=== PATIENT | female | born 1945 | race Caucasian/White ===

== ENCOUNTER → 2018-09-08 | Outpatient (CLI) | payer MEDICARE, OTHER ==
[~2018-09-08] MED LIST: ATEN50 PO; CARBLEV250 PO; CIPR500 PO; FURO100EL PO; IBUP400 PO; LOSA25 PO; POTCHL20ER PO; STALEVO 150 PO
== END | disposition home or self-care (01) ==
LOC: LAB SHORT 17:10 → LAB 17:10
DX: N02.0 Recurrent and persistent hematuria with minor glomerular abnormality (principal); R35.0 Frequency of micturition
CPT/HCPCS: 87077; 87086; 87186

== ENCOUNTER → 2019-07-06 | Outpatient (CLI) | payer MEDICARE, OTHER | END | disposition home or self-care (01) | LOC: LAB SHORT 18:01 → LAB 18:01 | DX: R30.0 Dysuria (principal) | CPT/HCPCS: 87086 ==

== ENCOUNTER → 2019-07-13 | Outpatient (CLI) | payer MEDICARE, OTHER | END | disposition home or self-care (01) | DX: R30.0 Dysuria (principal) ==

== ENCOUNTER → 2019-10-15 | Outpatient (CLI) | payer MEDICARE, OTHER | LOC: LAB 17:59 → LAB SHORT 17:59 | DX: L08.9 Local infection of the skin and subcutaneous tissue, unspecified (principal) | CPT/HCPCS: 87070; 87205 ==

== ENCOUNTER → 2020-01-01 | Outpatient (CLI) | payer MEDICARE, OTHER ==
[~2020-01-01] MED LIST changes: +ATENOLOL25 MG PO; +CEFP200 PO; +DYAZIDE 37.5-21 EACH PO; +Diflucan200 MG PO; +ENTACAPONE200 M1 PO; +LOSARTAN POTASS25 M2 PO
== END ==
LOC: LAB 18:24 → LAB SHORT 18:24
DX: L30.4 Erythema intertrigo (principal)
CPT/HCPCS: 87070; 87205

== ENCOUNTER 2020-01-10 02:53 | Emergency (ER) | payer MEDICARE, OTHER ==
[~2020-01-10] VITALS: Ht 167.6 cm; Wt 77.1 kg
[~2020-01-10 02:53] MED LIST changes: -ATENOLOL25 MG PO; -CEFP200 PO; -DYAZIDE 37.5-21 EACH PO; -Diflucan200 MG PO; -ENTACAPONE200 M1 PO; -LOSARTAN POTASS25 M2 PO
[2020-01-10] MEDS ORDERED: ATENOLOL25 MG PO (03:04)
[2020-01-10] MEDS ORDERED: Diflucan200 MG PO (03:04)
[2020-01-10] MEDS ORDERED: LOSARTAN POTASS25 M2 PO (03:05)
[2020-01-10] MEDS ORDERED: ENTACAPONE200 M1 PO (03:06)
[2020-01-10] MEDS ORDERED: DYAZIDE 37.5-21 EACH PO (03:06)
[2020-01-10 03:25] LABS: BASOPHILS ABSOLUTE AUTO 0.05 K/mm3 (0.00-0.23); BASOPHILS PERCENT AUTO 1 % (0-2); EOSINOPHILS ABSOLUTE AUTO 0.15 K/mm3 (0.00-0.68); EOSINOPHILS PERCENT AUTO 2 % (0-6); Hematocrit 31.6 % (33.0-51.0); Hemoglobin 10.4 g/dL (11.5-16.0); IMMATURE GRAN ABSOLUTE AUTO 0.04 K/mm3 (0.00-0.10); IMMATURE GRAN PERCENT AUTO 0 % (0-1); LYMPHOCYTES ABSOLUTE AUTO 0.79 K/mm3 (0.84-5.20); LYMPHOCYTES PERCENT AUTO 8 % (21-46); MONOCYTES ABSOLUTE AUTO 0.98 K/mm3 (0.16-1.47); MONOCYTES PERCENT AUTO 10 % (4-13); Mean Corpuscular HGB 31.4 pg (26.0-34.0); Mean Corpuscular HGB Conc 32.9 g/dL (31.5-36.5); Mean Corpuscular Volume 96 fL (80-100); Mean Platelet Volume 9.5 fL (9.1-12.4); NEUTROPHILS ABSOLUTE AUTO 8.16 K/mm3 (1.96-9.15); NEUTROPHILS PERCENT AUTO 80 % (41-73); Platelet Count 300 K/mm3 (150-400); RDW Coefficient Variation 13.4 % (11.7-14.2); RDW Standard Deviation 47.2 fL (35.1-46.3); Red Blood Cell Count 3.31 M/mm3 (3.80-5.20); White Blood Cell Count 10.17 K/mm3 (4.00-11.30)
[2020-01-10 03:45] LABS: Alanine Aminotransfer (ALT/SGP <6 U/L (12-78); Albumin, Blood 3.5 g/dL (3.4-5.0); Alk Phos 79 U/L (50-136); Anion Gap 8 mmol/L (6-16); Aspartate Aminotrans (AST/SGOT 12 U/L (12-37); Bilirubin, Total 0.6 mg/dL (0.1-1.0); Blood Urea Nitrogen 28 mg/dL (8-24); Bun/Creatinine Ratio 21.9 (12.0-20.0); CO2, Blood 22 mmol/L (21-32); Calcium, Blood 8.7 mg/dL (8.5-10.1); Chloride, Blood 106 mmol/L (98-108); Creatinine, Blood 1.28 mg/dL (0.40-1.00); Globulin, Blood 3.6 g/dL (2.2-4.0); Glomerular Filtration Rate 43 (60-); Glucose, Blood 98 mg/dL (70-99); Potassium, Blood 3.5 mmol/L (3.5-5.5); Sodium, Blood 136 mmol/L (136-145); Total Protein, Blood 7.1 g/dL (6.4-8.2)
[2020-01-10 04:05] LABS: Source, Urine Clean Catch
[2020-01-10 04:07] LABS: Appearance, Urine Clear (Clear); Bilirubin, Urine Neg (Neg); Blood, Urine 2+ (Neg); Color, Urine Amber (P-Yellow); Glucose Qualitative, Urine Neg (Neg); Ketones, Urine 1+ (Neg); Leukocyte Esterase, Urine 3+ (Neg); Nitrite, Urine Neg (Neg); Protein, Urine 1+ (Neg); Specific Gravity, Urine 1.015 (1.003-1.022); Urobilinogen, Urine NORM (Normal)
[2020-01-10 04:13] LABS: Bacteria Many /hpf; Squamous Epithelial Cells Few /hpf (Few)
[2020-01-10] MEDS ORDERED: CEFP200 PO (04:22)
== END 2020-01-10 04:55 | disposition home or self-care (01) ==
LOC: ER 02:53
PROVIDERS: Emergency Medicine
DX: R44.3 Hallucinations, unspecified (principal); N39.0 Urinary tract infection, site not specified; G20 Parkinson's disease; I10 Essential (primary) hypertension; Z79.899 Other long term (current) drug therapy
CPT/HCPCS: 36415; 80053; 81001; 85025; 87086; 96360; 99285-25; A9270-GY; J7030

== ENCOUNTER → 2020-02-04 | Outpatient (CLI) | payer MEDICARE, OTHER ==
[~2020-02-04] MED LIST changes: +ATENOLOL25 MG PO; +CEFP200 PO; +DYAZIDE 37.5-21 EACH PO; +Diflucan200 MG PO; +ENTACAPONE200 M1 PO; +LOSARTAN POTASS25 M2 PO
== END | disposition home or self-care (01) ==
LOC: LAB 18:56
DX: L08.9 Local infection of the skin and subcutaneous tissue, unspecified (principal)
CPT/HCPCS: 87070; 87205

== ENCOUNTER → 2022-05-04 | Outpatient (CLI) | payer MEDICARE ==
[~2022-05-04] MED LIST changes: +ENTACAPONE PO
[2022-05-05 00:36] LABS: Source, Urine Clean Catch
[2022-05-05 00:46] LABS: Bilirubin, Urine Neg (Neg); Blood, Urine 1+ (Neg); Glucose Qualitative, Urine Neg (Neg); Ketones, Urine 1+ (Neg); Leukocyte Esterase, Urine 3+ (Neg); Nitrite, Urine Pos (Neg); Protein, Urine 3+ (Neg); Specific Gravity, Urine 1.015 (1.003-1.022); Urobilinogen, Urine NORM (Normal)
[2022-05-05 01:12] LABS: Appearance, Urine Hazy (Clear); Color, Urine Yellow (P-Yellow)
[2022-05-05 01:15] LABS: Bacteria Many /hpf; Mucus Heavy (0-Heavy); Red Blood Cells, Urine 0-2 /hpf (0-2); Squamous Epithelial Cells Rare /hpf (Few); Yeast/Fungi Urine Few /hpf
== END | disposition home or self-care (01) ==
LOC: EDSTATUS 15:53 → LAB UVN 23:20
PROVIDERS: Internal Medicine
DX: N39.0 Urinary tract infection, site not specified (principal)
CPT/HCPCS: 81001; 87077; 87086; 87186

== ENCOUNTER 2022-07-31 17:26 | Emergency (ER) | payer MEDICARE, BC ==
[~2022-07-31] VITALS: Ht 165.1 cm; Wt 81.7 kg
[2022-07-31] MEDS ORDERED: AMLO5 PO (17:46)
[2022-07-31 18:52] LABS: BASOPHILS ABSOLUTE AUTO 0.04 K/mm3 (0.00-0.23); BASOPHILS PERCENT AUTO 0 % (0-2); EOSINOPHILS ABSOLUTE AUTO 0.04 K/mm3 (0.00-0.68); EOSINOPHILS PERCENT AUTO 0 % (0-6); Hemoglobin 10.6 g/dL (11.5-16.0); IMMATURE GRAN ABSOLUTE AUTO 0.04 K/mm3 (0.00-0.10); IMMATURE GRAN PERCENT AUTO 0 % (0-1); LYMPHOCYTES ABSOLUTE AUTO 1.28 K/mm3 (0.84-5.20); LYMPHOCYTES PERCENT AUTO 14 % (21-46); MONOCYTES ABSOLUTE AUTO 0.78 K/mm3 (0.16-1.47); MONOCYTES PERCENT AUTO 9 % (4-13); Mean Corpuscular HGB 29.1 pg (26.0-34.0); Mean Corpuscular HGB Conc 33.1 g/dL (31.5-36.5); Mean Corpuscular Volume 88 fL (80-100); Mean Platelet Volume 10.7 fL (9.1-12.4); NEUTROPHILS PERCENT AUTO 76 % (41-73); Platelet Count 257 K/mm3 (150-400); RDW Coefficient Variation 13.5 % (11.7-14.2); RDW Standard Deviation 43.5 fL (35.1-46.3); Red Blood Cell Count 3.64 M/mm3 (3.80-5.20); White Blood Cell Count 9.08 K/mm3 (4.00-11.30)
[2022-07-31 19:14] LABS: Albumin, Blood 3.4 g/dL (3.4-5.0); Bilirubin, Total 0.6 mg/dL (0.1-1.0); Bun/Creatinine Ratio 29.9 (12.0-20.0); Calcium, Blood 9.3 mg/dL (8.5-10.1); Creatinine, Blood 0.8 mg/dL (0.40-1.00); Globulin, Blood 3.3 g/dL (2.2-4.0); Potassium, Blood 3.2 mmol/L (3.5-5.5); Total Protein, Blood 6.7 g/dL (6.4-8.2)
[2022-07-31 19:47] LABS: Source, Urine Straight Cath
[2022-07-31 20:09] LABS: Appearance, Urine Clear (Clear); Bilirubin, Urine Neg (Neg); Blood, Urine 1+ (Neg); Color, Urine Yellow (P-Yellow); Glucose Qualitative, Urine Neg (Neg); Ketones, Urine Neg (Neg); Leukocyte Esterase, Urine 1+ (Neg); Nitrite, Urine Neg (Neg); Protein, Urine 2+ (Neg); Urobilinogen, Urine NORM (Normal)
[2022-07-31 20:25] LABS: Red Blood Cells, Urine 0-2 /hpf (0-2)
[2022-07-31 20:26] LABS: Bacteria Few /hpf; Squamous Epithelial Cells Few /hpf (Few)
[2022-07-31 21:00] VITALS: BP 154/63
== END 2022-07-31 22:25 | disposition home or self-care (01) ==
LOC: ER 17:26
PROVIDERS: Student in an Organized Health Care Education/Training Program
DX: S42.034A Nondisplaced fracture of lateral end of right clavicle, initial encounter for closed fracture (principal); X58.XXXA Exposure to other specified factors, initial encounter; R35.0 Frequency of micturition; I10 Essential (primary) hypertension; G20 Parkinson's disease; Z79.899 Other long term (current) drug therapy
CPT/HCPCS: 73030; 80053; 81001; 85025; 96374; 99285-25; J1885; J7030

== ENCOUNTER 2022-08-02 13:41 | Inpatient (IN) | payer MEDICARE, BC ==
[~2022-08-02] VITALS: Ht 165.1 cm; Wt 72.4 kg
[~2022-08-02 13:41] MED LIST changes: +AMLO5 PO; +CARBIDOPA-LEVO1 EA16 PO; -CARBLEV250 PO
[2022-08-02 14:25] LABS: BASOPHILS ABSOLUTE AUTO 0.07 K/mm3 (0.00-0.23); BASOPHILS PERCENT AUTO 0 % (0-2); EOSINOPHILS ABSOLUTE AUTO 0.03 K/mm3 (0.00-0.68); EOSINOPHILS PERCENT AUTO 0 % (0-6); Hematocrit 37.1 % (33.0-51.0); Hemoglobin 12.3 g/dL (11.5-16.0); IMMATURE GRAN ABSOLUTE AUTO 0.09 K/mm3 (0.00-0.10); IMMATURE GRAN PERCENT AUTO 1 % (0-1); LYMPHOCYTES ABSOLUTE AUTO 0.77 K/mm3 (0.84-5.20); LYMPHOCYTES PERCENT AUTO 4 % (21-46); MONOCYTES ABSOLUTE AUTO 1.49 K/mm3 (0.16-1.47); MONOCYTES PERCENT AUTO 8 % (4-13); Mean Corpuscular HGB 28.9 pg (26.0-34.0); Mean Corpuscular HGB Conc 33.2 g/dL (31.5-36.5); Mean Corpuscular Volume 87 fL (80-100); Mean Platelet Volume 11.6 fL (9.1-12.4); NEUTROPHILS ABSOLUTE AUTO 15.26 K/mm3 (1.96-9.15); NEUTROPHILS PERCENT AUTO 86 % (41-73); Platelet Count 275 K/mm3 (150-400); RDW Coefficient Variation 13.6 % (11.7-14.2); RDW Standard Deviation 43.4 fL (35.1-46.3); Red Blood Cell Count 4.25 M/mm3 (3.80-5.20); White Blood Cell Count 17.71 K/mm3 (4.00-11.30)
[2022-08-02 14:37] LABS: Albumin, Blood 3.4 g/dL (3.4-5.0); Albumin/Globulin Ratio 0.8 (0.8-1.8); Bun/Creatinine Ratio 35.4 (12.0-20.0); Calcium, Blood 9.2 mg/dL (8.5-10.1); Creatinine, Blood 0.96 mg/dL (0.40-1.00); Potassium, Blood 3.8 mmol/L (3.5-5.5); Total Protein, Blood 7.4 g/dL (6.4-8.2)
[2022-08-02 15:16] LABS: Source, Urine Clean Catch
[2022-08-02 15:58] LABS: Appearance, Urine Clear (Clear); Bilirubin, Urine Neg (Neg); Blood, Urine 3+ (Neg); Color, Urine Yellow (P-Yellow); Glucose Qualitative, Urine Neg (Neg); Ketones, Urine 2+ (Neg); Leukocyte Esterase, Urine Neg (Neg); Nitrite, Urine Neg (Neg); Protein, Urine 3+ (Neg); Specific Gravity, Urine 1.015 (1.003-1.022); Urobilinogen, Urine NORM (Normal)
[2022-08-02 16:41] LABS: Amorphous Light (0-Heavy); Bacteria Mod /hpf; Mucus Light (0-Heavy); Squamous Epithelial Cells Rare /hpf (Few); White Blood Cells, Urine 0-2 /hpf (0-5)
[2022-08-02 18:31] LABS: Base Excess Venous -2.5 mmol/L; Bicarbonate Venous 22.6 mmol/L (24.0-30.0); PCO2 Venous 35.7 mmHg (38-42)
[2022-08-02 20:50] VITALS: BP 123/42
[2022-08-03 03:19] LABS: Source, Urine Straight Cath
[2022-08-03 03:22] LABS: Appearance, Urine Clear (Clear); Bilirubin, Urine Neg (Neg); Blood, Urine 4+ (Neg); Color, Urine Yellow (P-Yellow); Glucose Qualitative, Urine Neg (Neg); Ketones, Urine 2+ (Neg); Leukocyte Esterase, Urine Neg (Neg); Nitrite, Urine Pos (Neg); Protein, Urine 3+ (Neg); Specific Gravity, Urine 1.015 (1.003-1.022); Urobilinogen, Urine NORM (Normal)
[2022-08-03 04:14] LABS: Amorphous Light (0-Heavy); Bacteria Few /hpf; Red Blood Cells, Urine 0-2 /hpf (0-2); Squamous Epithelial Cells Not Seen /hpf (Few); White Blood Cells, Urine 0-2 /hpf (0-5)
--- NOTE | 2022-08-03 04:41 | NUR ---
SHIFT SUMMARY REPORT CALLED FROM HANNAH JIMENEZ IN ED- 2100 PT BROUGHT TO ROOM VIA GURNEY- PUREWICK IN PLACE- PT HAS SLING ON RIGHT ARM FOR PREVIOUS CLAVICLE INJURY-STARTED IV FLUIDS PER ORDER- PT TOOK SCHEDULED MEDS WITHOUT PROBLEMS- ASSISTED PT WITH EATING ICE CREAM- PT REPORTED PAIN IN RIGHT SHOULDER TOLERABLE -0200 PUREWICK HAD LOW OUTPUT- ABDOMEN IS DISTENDED- BLADDER SCAN =1057- ENCOURAGED PT TO SIT ON BSC- PT ABLE TO URINATE SMALL AMOUNT- POST RESIDUAL SCAN - 1107, CALL TO DR. RAMOS - NEW ORDER FOR I&O CATH AND OBTAIN NEW UA D/T LAB REPORTING TOO SMALL AMOUNT COLLECTED WITH FIRST UA- DRAINED 1200 JOEL URINE-UA SENT TO LAB BED LOW POSITION, CALL LIGHT WITHIN REACH, BED ALARM IN PLACE
[2022-08-03 04:48] LABS: BASOPHILS ABSOLUTE AUTO 0.05 K/mm3 (0.00-0.23); BASOPHILS PERCENT AUTO 0 % (0-2); EOSINOPHILS PERCENT AUTO 2 % (0-6); Hematocrit 31.7 % (33.0-51.0); Hemoglobin 10.5 g/dL (11.5-16.0); IMMATURE GRAN ABSOLUTE AUTO 0.04 K/mm3 (0.00-0.10); IMMATURE GRAN PERCENT AUTO 0 % (0-1); LYMPHOCYTES ABSOLUTE AUTO 1.15 K/mm3 (0.84-5.20); LYMPHOCYTES PERCENT AUTO 9 % (21-46); MONOCYTES ABSOLUTE AUTO 1.49 K/mm3 (0.16-1.47); MONOCYTES PERCENT AUTO 11 % (4-13); Mean Corpuscular HGB 29.2 pg (26.0-34.0); Mean Corpuscular HGB Conc 33.1 g/dL (31.5-36.5); Mean Corpuscular Volume 88 fL (80-100); Mean Platelet Volume 11.6 fL (9.1-12.4); NEUTROPHILS ABSOLUTE AUTO 10.17 K/mm3 (1.96-9.15); NEUTROPHILS PERCENT AUTO 77 % (41-73); Platelet Count 209 K/mm3 (150-400); RDW Coefficient Variation 13.4 % (11.7-14.2); RDW Standard Deviation 43.8 fL (35.1-46.3); Red Blood Cell Count 3.59 M/mm3 (3.80-5.20)
[2022-08-03 04:56] VITALS: BP 146/66
--- NOTE | 2022-08-03 07:12 | NUR ---
ASSUMED CARE: PT RESTING IN BED, IVF RUNNING LR AT 125/HR. PHYSICAL THERAPY AT BEDSIDE TO DO EVALUATION. NO ACUTE NEEDS OR CONCERNS AT THIS TIME.
[2022-08-03 07:33] VITALS: BP 125/55
[2022-08-03 09:34] LABS: Albumin, Blood 3.3 g/dL (3.4-5.0); Anion Gap 8 mmol/L (6-16); Blood Urea Nitrogen 36 mg/dL (8-24); Bun/Creatinine Ratio 46.8 (12.0-20.0); CO2, Blood 26 mmol/L (21-32); Chloride, Blood 106 mmol/L (98-108); Creatinine, Blood 0.77 mg/dL (0.40-1.00); Glomerular Filtration Rate 79 (60-); Glucose, Blood 95 mg/dL (70-99); Phosphorus, Blood 2.9 mg/dL (2.5-4.9); Potassium, Blood 3.1 mmol/L (3.5-5.5); Sodium, Blood 140 mmol/L (136-145)
--- NOTE | 2022-08-03 11:15 | NUR ---
OT CONCERNED ABOUT PT'S CLAVICLE FRACTURE AND WANTED TO KNOW WB STATUS. DISCUSSED WITH DR STATON WHO STATED WE DO NOT NEED ORTHO CONSULT AT THIS TIME AND PT CAN BE NWB OF RIGHT ARM. OT AWARE AND WORKING WITH PT NOW
[2022-08-03 15:18] VITALS: BP 147/66
--- NOTE | 2022-08-03 19:09 | NUR ---
SHIFT SUMMARY: PT HAD FREQUENT BOWEL MOVEMENTS TODAY AFTER BOWEL CARE GIVEN. RETAINING URINE. LATEST BLADDER SCAN SHOWED 854. STRAIGHT CATH DONE WITH 650 OUT. PLAN IS FOR PLACEMENT UPON DISCHARGE. NO ACUTE NEEDS OR CONCERNS
[2022-08-03 20:01] VITALS: BP 151/100
[2022-08-04 04:12] VITALS: BP 135/48
[2022-08-04 05:25] LABS: Hematocrit 33.3 % (33.0-51.0); Hemoglobin 11.4 g/dL (11.5-16.0); Mean Corpuscular HGB 29.5 pg (26.0-34.0); Mean Corpuscular HGB Conc 34.2 g/dL (31.5-36.5); Mean Corpuscular Volume 86 fL (80-100); Platelet Count 177 K/mm3 (150-400); RDW Coefficient Variation 13.3 % (11.7-14.2); RDW Standard Deviation 41.6 fL (35.1-46.3); Red Blood Cell Count 3.87 M/mm3 (3.80-5.20); White Blood Cell Count 13.58 K/mm3 (4.00-11.30)
[2022-08-04 05:58] LABS: Anion Gap 7 mmol/L (6-16); Blood Urea Nitrogen 28 mg/dL (8-24); Bun/Creatinine Ratio 38.2 (12.0-20.0); CO2, Blood 25 mmol/L (21-32); Calcium, Blood 8.7 mg/dL (8.5-10.1); Chloride, Blood 108 mmol/L (98-108); Creatinine, Blood 0.73 mg/dL (0.40-1.00); Glomerular Filtration Rate 85 (60-); Glucose, Blood 103 mg/dL (70-99); Phosphorus, Blood 2.3 mg/dL (2.5-4.9); Potassium, Blood 3.3 mmol/L (3.5-5.5); Sodium, Blood 140 mmol/L (136-145)
--- NOTE | 2022-08-04 06:07 | NUR ---
SHIFT SUMMARY PT LAYING IN BED DURING BEDSIDE ROUNDS- PT TOOK SCHEDULED MEDICATIONS WHOLE IN APPLE SAUCE- PT UP TO BSC- PT UNABLE TO VOID-WILL CONTINUE TO MONITOR- 2315 BLADDER SCAN DONE 381- PT C/O OF PAIN WHILE SCAN DONE- PT REPORTED PAIN SUBSIDED AFTER BLADDER SCAN- NO SIGN OF DISTENTION, 0100 BLADDER SCAN = 403- WILL CONTINUE TO MONITOR, 0200 PT SET OFF BED ALARM AND WAS AMBULATING IN ROOM- ASSISTED PT TO BATHROOM- PT ABLE TO URINATE SMALL AMOUNT OF 25ML OF JOEL URINE AND HAD SMALL BM -0400 REPEAT BLADDER SCAN = 603- PT UP TO BSC - UNABLE TO URINATE- STRAIGHT CATH DONE PER ORDER= 600 ML JOEL URINE OBTAINED- PT TOLERATED WELL- PT REQUESTED OXYCODONE FOR BACK PAIN- BED LOW POSITION, CALL LIGHT WITHIN REACH
[2022-08-04 07:45] VITALS: BP 144/57
[2022-08-04 15:20] VITALS: BP 141/61
[2022-08-04 15:21] LABS: Source, Urine Foley catheter
[2022-08-04 15:25] LABS: Appearance, Urine Hazy (Clear); Bilirubin, Urine Neg (Neg); Blood, Urine 3+ (Neg); Color, Urine Yellow (P-Yellow); Glucose Qualitative, Urine Neg (Neg); Ketones, Urine Neg (Neg); Leukocyte Esterase, Urine 3+ (Neg); Nitrite, Urine Neg (Neg); Protein, Urine 2+ (Neg); Specific Gravity, Urine 1.015 (1.003-1.022); Urobilinogen, Urine NORM (Normal)
[2022-08-04 15:41] LABS: Amorphous Light (0-Heavy); Bacteria Many /hpf; Squamous Epithelial Cells Few /hpf (Few)
--- NOTE | 2022-08-04 16:36 | NUR ---
PT AOX3 WITH SOME MILD CONFUSION. PT DENIES NEED FOR ANY PAIN MEDICATION AT THIS TIME. PT WAS NOT VOIDING TODAY AND HAD ANOTHER BLADDER SCAN OVER 500ML. DR STATON WAS NOTFIED AND SHE INSTRUCTED TO HAVE PT GET UP TO COMMODE AND TRY TO VOID, IF UNABLE TO VOID PLACE LOU. PT WAS GOTTEN UP TO COMMODE AND WAS UNABLE TO VOID BLADDER. LOU WAS PLACE AND PT TOLERATED WELL. PT DOES SEEM TO HAVE HAD SOME MILD INCREASE IN CONFUSION THE DAY HAS PROGRESSED. SHE IS HAVING TO ASK WHAT SHE IS LOOKING AT BE IT A CHAIR OR SOMETHING ON THE BENCH. PT HAS BED ALARM PLACE AND CALL LIGHT WITHIN REACH. WILL CONTINUE TO MONITOR.
[2022-08-04 20:11] VITALS: BP 88/74
[2022-08-05 04:44] VITALS: BP 157/65
[2022-08-05 04:51] LABS: Hematocrit 29.8 % (33.0-51.0); Hemoglobin 10.1 g/dL (11.5-16.0); Mean Corpuscular HGB 29.3 pg (26.0-34.0); Mean Corpuscular HGB Conc 33.9 g/dL (31.5-36.5); Mean Corpuscular Volume 86 fL (80-100); Mean Platelet Volume 11.8 fL (9.1-12.4); Platelet Count 217 K/mm3 (150-400); RDW Coefficient Variation 13.2 % (11.7-14.2); RDW Standard Deviation 41.8 fL (35.1-46.3); Red Blood Cell Count 3.45 M/mm3 (3.80-5.20); White Blood Cell Count 9.28 K/mm3 (4.00-11.30)
[2022-08-05 05:10] LABS: Albumin, Blood 2.7 g/dL (3.4-5.0); Anion Gap 5 mmol/L (6-16); Blood Urea Nitrogen 19 mg/dL (8-24); Bun/Creatinine Ratio 27.5 (12.0-20.0); CO2, Blood 27 mmol/L (21-32); Calcium, Blood 8.1 mg/dL (8.5-10.1); Chloride, Blood 110 mmol/L (98-108); Creatinine, Blood 0.69 mg/dL (0.40-1.00); Glomerular Filtration Rate 89 (60-); Glucose, Blood 116 mg/dL (70-99); Phosphorus, Blood 3.6 mg/dL (2.5-4.9); Potassium, Blood 3.4 mmol/L (3.5-5.5); Sodium, Blood 142 mmol/L (136-145)
--- NOTE | 2022-08-05 05:21 | NUR ---
SHIFT SUMMARY: PT A&O X2 THIS SHIFT. PT PLEASANT AND COOPERATIVE WITH ALL CARE. PT COULD STATE HER NAME AND . PT ALSO ABLE TO TALK ABOUT AND FAMILY. PT STATED MANY TIMES "I NEED TO GO TO MY ROOM." ATTEMPTED TO REASSURE PT SHE WAS IN HOSPITAL. PT C/O PAIN IN BACK AND R. FX CLAVICLE ONCE THIS SHIFT. REPOSITIONED PT AND MEDICATED PER EMAR. MEPILEX ON BOTTOM C/D/I. LOU DRAINING TO GRAVITY. URINE ORANGE IN COLOR. PT PULLED IV OUT THIS SHIFT. CALL PLACED TO DR. RAMOS TO OBTAIN NO IV ACCESS ORDER AND CHANGE IV ZOFRAN TO PO. ORDERS IN PLACE. PT CURRENTLY RESTING COMFORTABLY W/O COMPLAINTS. CALL LIGHT IN REACH. BED IN LOWEST POSITION. WILL CONTINUE TO MONITOR.
[2022-08-05 07:26] VITALS: BP 164/66
[2022-08-05 15:27] VITALS: BP 120/79
--- NOTE | 2022-08-05 17:23 | NUR ---
NO ACUTE CHANGES PT IS AOX3 WITH CONFUSION. PT IS A TWO PERSON TRANSFER BACK TO BED FROM CHAIR SHE WILL GET STUCK HAVING TROUBLE MOVING HER LEGS. NEEDS REPOSITIONED WITH PILLOW EVERY COUPLE HOURS. NO DISTRESS AT THIS TIME WILL CONTINUE TO MONITOR BED ALARM IN PLACE.
[2022-08-05 19:26] VITALS: BP 135/93
--- NOTE | 2022-08-06 04:25 | NUR ---
SHIFT SUMMARY: PT A&O X2-3 THIS SHIFT. PT PLEASANT AND COOPERATIVE WITH ALL CARE. FRIEND OF PT ARRIVED AROUND 2200 ASKING FOR UPDATES ON PT. PT GAVE VERBAL CONSENT TO TALK TO FRIEND. CASE MANAGEMENT WORKING ON SNF PLACEMENT VS [facility]. TOLD FRIEND THAT CASE MANAGEMENT WOULD BE BACK SATURDAY AND HAVE MORE ANSWERS ON D/C THAN I COULD GIVE. LEFT NOTE WITH PHONE NUMBER ON CASE MANAGEMENT COMPUTER. PT HAD FACE SCALE RATING OF 6/10 PAIN THIS SHIFT. MEDICATED PER EMAR. LOU IN PLACE DRAINING JOEL URINE TO GRAVITY. URINE SLIGHTLY CLOUDY IN APPEARANCE. VSS. NO C/O CHEST PAIN. ON RA. CALL LIGHT IN REACH. BED IN LOWEST POSITION. WILL CONTINUE TO MONITOR.
[2022-08-06 05:15] VITALS: BP 133/58
[2022-08-06 08:10] VITALS: BP 133/66
[2022-08-06 08:43] LABS: Bun/Creatinine Ratio 29.6 (12.0-20.0); Calcium, Blood 8.1 mg/dL (8.5-10.1); Creatinine, Blood 0.71 mg/dL (0.40-1.00); Potassium, Blood 3.5 mmol/L (3.5-5.5)
[2022-08-06] MEDS ORDERED: Acetaminophen650 M1 PO (14:04)
[2022-08-06] MEDS ORDERED: DOCU100 PO (14:05)
[2022-08-06] MEDS ORDERED: OXAYDO5 M2 PO (14:05)
[2022-08-06] MEDS ORDERED: SENNA LAXATIVE8.6 MG PO (14:05)
[2022-08-06] MEDS ORDERED: Zofran4 MG PO (14:05)
[2022-08-06 14:41] LABS: SARS-Cov-2 (COVID-19) PCR, MMC NEGATIVE (NEGATIVE)
[2022-08-06 16:27] VITALS: BP 111/67
--- NOTE | 2022-08-06 18:10 | NUR ---
DISCHARGE NOTE PT DISCHARGED TO [facility]. REPORT GIVEN TO NURSE AT FACILITY. PAPERWORK PROVIDED TO TRANSPORT PERSONNEL. PT TRANSPORTED BY WHEELCHAIR.
== END 2022-08-06 18:07 | DRG 948 ==
LOC: ER 13:41 → MEDS 13:42
PROVIDERS: Emergency Medicine; Internal Medicine; Nurse Practitioner Acute Care; Student in an Organized Health Care Education/Training Program; ADMIT Internal Medicine
PROC: 0T9B70Z Drainage of Bladder with Drainage Device, Via Natural or Artificial Opening (ICD-10-PCS; principal; 2022-08-04)
DX: R53.1 Weakness (principal); R65.10 Systemic inflammatory response syndrome (SIRS) of non-infectious origin without acute organ dysfunction; E87.20 Acidosis, unspecified; E86.0 Dehydration; G20 Parkinson's disease; S42.031A Displaced fracture of lateral end of right clavicle, initial encounter for closed fracture; Z66 Do not resuscitate; R33.9 Retention of urine, unspecified; I10 Essential (primary) hypertension; K59.00 Constipation, unspecified; I87.2 Venous insufficiency (chronic) (peripheral); E87.6 Hypokalemia; D72.829 Elevated white blood cell count, unspecified; E83.39 Other disorders of phosphorus metabolism; Z20.822 Contact with and (suspected) exposure to COVID-19; W19.XXXA Unspecified fall, initial encounter; Z99.3 Dependence on wheelchair; Z79.899 Other long term (current) drug therapy
CPT/HCPCS: 36415; 51701; 70450; 71046; 80048; 80053; 80069; 81001; 82803; 83605; 84443; 85025; 85027; 87040; 87086; 96361; 96372; 96374; 97110; 97116; 97161; 97166; 97530; 97535; 99285-25; A9270; G0378; J1650; J1885; J7060; J7120; U0002

== ENCOUNTER 2022-08-13 16:00 | Emergency (ER) | payer OTHER, MEDICARE, BC ==
[~2022-08-13] VITALS: Ht 165.1 cm; Wt 74.8 kg
[~2022-08-13 16:00] MED LIST changes: +Acetaminophen650 M1 PO; +DOCU100 PO; +OXAYDO5 M2 PO; +SENNA LAXATIVE8.6 MG PO; +Zofran4 MG PO
[2022-08-13 16:17] VITALS: BP 130/75
== END 2022-08-13 19:58 | disposition home or self-care (01) ==
LOC: ER 16:00
DX: Z04.3 Encounter for examination and observation following other accident (principal); Z79.899 Other long term (current) drug therapy; I10 Essential (primary) hypertension; G20 Parkinson's disease
CPT/HCPCS: 99283

== ENCOUNTER → 2022-09-20 | Outpatient (CLI) | payer MEDICARE, BC ==
[2022-09-20 15:48] LABS: Source, Urine Clean Catch
[2022-09-20 16:30] LABS: Appearance, Urine Turbid (Clear); Bilirubin, Urine Neg (Neg); Blood, Urine 3+ (Neg); Color, Urine Yellow (P-Yellow); Glucose Qualitative, Urine Neg (Neg); Ketones, Urine 1+ (Neg); Leukocyte Esterase, Urine 3+ (Neg); Nitrite, Urine Neg (Neg); Protein, Urine 3+ (Neg); Specific Gravity, Urine 1.025 (1.003-1.022); Urobilinogen, Urine NORM (Normal)
[2022-09-20 16:41] LABS: Red Blood Cells, Urine TNTC /hpf (0-2); White Blood Cells, Urine TNTC /hpf (0-5)
[2022-09-20 16:42] LABS: Bacteria Many /hpf; Squamous Epithelial Cells Rare /hpf (Few)
[2022-09-20 16:43] LABS: WBC Cast 0-2 /lpf (0)
== END ==
LOC: LAB 15:46 → LAB SHORT 15:46
PROVIDERS: Physician Assistant
DX: N39.0 Urinary tract infection, site not specified (principal)
CPT/HCPCS: 81001

== ENCOUNTER 2022-10-02 13:08 | Emergency (ER) | payer MEDICARE, BC ==
[~2022-10-02] VITALS: Ht 160 cm; Wt 56.7 kg
[2022-10-02 13:16] VITALS: BP 105/56
== END 2022-10-02 15:07 | disposition home or self-care (01) ==
LOC: ER 13:08
DX: S51.802A Unspecified open wound of left forearm, initial encounter (principal); S81.802A Unspecified open wound, left lower leg, initial encounter; S41.101A Unspecified open wound of right upper arm, initial encounter; G20 Parkinson's disease; W06.XXXA Fall from bed, initial encounter; Z79.899 Other long term (current) drug therapy; I10 Essential (primary) hypertension
CPT/HCPCS: 12004; 99283-25